=== PATIENT | female | born 1960 | race Caucasian/White ===

== ENCOUNTER 2024-08-04 11:32 | Outpatient (CLI) | payer BC, SELFPAY ==
[2024-08-04 19:18] LABS: Alanine Aminotransferase 29 U/L (6-35); Albumin Level 4.4 g/dL (3.5-5.1); Alkaline Phosphatase 66 U/L (38-126); Anion Gap 1 mmol/L (4-12); Aspartate Amino Transferase 48 U/L (14-36); Bilirubin,Total 0.6 mg/dL (0.2-1.3); Blood Urea Nitrogen 17 mg/dL (7-17); Calcium 9.4 mg/dL (8.4-10.2); Carbon Dioxide 34 mmol/L (22-30); Chloride 98 mmol/L (98-107); Cholesterol 193 mg/dL (0-200); Estimated Glomerular Filt Rate > 60; Glucose 106 mg/dL (65-110); HDL Direct 60 mg/dL; Potassium 4.3 mmol/L (3.4-5.0); Sodium 133 mmol/L (137-145); Triglycerides 110 mg/dL (<150)
[2024-08-04 19:29] LABS: LDL Cholesterol Direct 88 mg/dL
== END 2024-08-04 11:33 | disposition home or self-care (01) ==
LOC: ANHBWCLAB 11:34
PROVIDERS: PCP Nurse Practitioner Adult Health; Visit Provider Nurse Practitioner Adult Health
DX: E78.5 Hyperlipidemia, unspecified (principal)
CPT/HCPCS: 36415; 80053; 80061

== ENCOUNTER 2025-05-03 14:03 | Outpatient (CLI) | payer BC, SELFPAY ==
--- NOTE | ~2025-05-03 | XR_ITS ---
EXAM/ PROCEDURE: XR hand LT min 3V, XR hand RT min 3V - 05/03/2025 14:06 CDT HISTORY: 64 years old Female with M79.643 - Pain in unspecified hand COMPARISON: None available TECHNIQUE: Three view(s) each FINDINGS/ IMPRESSION: There are no fractures or dislocations.Joint space narrowing, subchondral sclerosis, subchondral cyst formation and osteophyte formation, compatible with mild multi joint osteoarthritis, greatest in the distal interphalangeal joints of both hands, left greater than right. Status post ORIF of the right distal radius. Intact hardware and no loosening Reviewed, dictated and finalized at location N.
--- OUTSIDE RECORDS SUMMARY | 2025-05-03 15:44 | XMS_ITS | Clinical Summary ---
Author Organization [facility] Address [address] [place] [address] Care Team Providers Care Hotel Operations Manager Name Role Phone Frank Golden MD Primary Care Provider [phone] [phone] Source Comments [facility],non-owned Affiliates and Associated Physician Practices is amultiple site organization consisting of ambulatory clinics and hospital sitesin [place], [place], [place] and [place]. This disclosure is being madepursuant to the Care Everywhere program and may not contain all information available regarding this patient. Last updated 18.[facility] Allergies No known active allergies Medications * Be aware that medications may not be up to date on this document. Alwaysverify current medications with the patient. atorvastatin (LIPITOR) 40 MG tablet Take 40 mg by mouth at bedtime Active lisinopril-hydr oCHLOROthiazide (PRINZIDE; ZESTORETIC) 10-12.5 MG tablet Take 1 tablet by mouth once daily Active budesonide-form oterol (SYMBICORT) 160-4.5 MCG/ACT inhaler Inhale 2 puffs by mouth 2 times daily Active albuterol HFA (PROVENTIL;VENT CHRISTOPHER;PROAIR) 108 (90 Base) MCG/ACT inhaler Inhale 2 puffs by mouth every 6 hours as needed Active methylPREDNISol one (MEDROL DOSEPAK) 4 MG tablet Take by mouth as directed 1 Each 04/15/2019 Active Social History Tobacco Use Types Packs/Day Years Used Date Smoking Tobacco: Never Assessed Comments Unknown Sex and Gender Information Value Date Recorded Sex Assigned at Not on file Legal Sex Female 7:52 AM CDT Gender Identity Not on file Sexual Orientation Not on file Last Filed Vital Signs Vital Sign Reading Time Taken Comments Blood Pressure 138/82 04/15/2019 3:23 PM CDT Pulse 84 04/15/2019 3:23 PM CDT Temperature 36.8 C (98.2 F) 04/15/2019 3:23 PM CDT Respiratory Rate 18 04/15/2019 3:23 PM CDT Oxygen Saturation 95% 04/15/2019 3:23 PM CDT Inhaled Oxygen Concentration - - Weight 124.7 kg (275 lb) 04/15/2019 3:23 PM CDT Height 170.2 cm (5' 7) 04/15/2019 3:23 PM CDT Body Mass Index 43.07 04/15/2019 3:23 PM CDT Plan of Treatment Health Maintenance Due Date Last Done Comments COLOGUARD (AGES 45-75) - COL ON CA SCREENING 1960 COLON MONITORING 1960 COLONOSCOPY - COLON CA SCREENING 1960 CT COLONOGRAPHY - COLON CA SCREENING 1960 Colorectal Cancer Screening 1960 FIT - COLON CA SCREENING 1960 FLEX SIG - COLON CA SCREENING 1960 MAMMOGRAM 1960 HIV SCREENING 11/09/1975 HEPATITIS C SCREENING 11/04/1978 DTAP/TDAP/TD VACCINES (1 - Tdap) 11/09/1979 PNEUMOCOCCAL VACCINE 50+ (1 of 1 - PCV) 2010 ZOSTER VACCINE (1 of 2) 2010 SCREENING FOR DIABETES 04/15/2019 DEPRESSION SCREENING 08/18/2024 COVID-19 VACCINE (1 - 2023-2 5 season) 2025 INFLUENZA VACCINE (#1) 2025 06/05/2018 Respiratory Syncytial Virus (RSV) Vaccine Pt: or over 60 yrs (1 - 1-dose 75+ series) 11/09/2035 HEPATITIS B VACCINE Aged Out No longe r eligible based on patient's age to complete this topic HIB VACCINE Aged Out No longer eligi ble based on patient's age to complete this topic HPV VACCINE Aged Out No longer eligi ble based on patient's age to complete this topic MENINGOCOCCAL (Group B) VACC INE SHARED DECISION-MAKING Aged Out No longer eligibl e based on patient's age to complete this topic MENINGOCOCCAL GROUPS A/C/Y/W VACCINE Aged Out No longer eligible b ased on patient's age to complete this topic Care Teams Hotel Operations Manager Relationship Specialty Start Date End Date Frank Golden MD [address] [place] [phone] PCP - General Internal Medicine 04/15/19
--- OUTSIDE RECORDS SUMMARY | 2025-05-03 15:45 | XMS_ITS | Clinical Summary ---
Author Organization [facility] Address [address] [place] [address] Care Team Providers Care Parts Data Writer Name Role Phone Unavailable Primary Care Provider Unavailabl e Social History Tobacco Use Types Packs/Day Years Used Date Smoking Tobacco: Never Assessed Comments Unknown Sex and Gender Information Value Date Recorded Sex Assigned at Not on file Legal Sex Female 8:30 PM CDT Gender Identity Not on file Sexual Orientation Not on file Plan of Treatment Health Maintenance Due Date Last Done Comments Cervical Cancer Screening Pa p Smear (Age 30 to 64) Every 3 Years 1960 Colorectal Cancer Screening Colonoscopy (10 Years) 1960 Annual Physical 11/09/1963 Hepatitis C 1978 DTaP, Tdap and Td Vaccines ( 1 - Tdap) 11/09/1979 Cervical Cancer Screening Pa p with HPV Testing (Age 30 to 64) Every 5 Years 1990 Cervical Cancer Screening with HPV 1990 Mammogram Screening 2000 Pneumococcal Vaccine: 50+ Ye ars (1 of 1 - PCV) 2010 Zoster Vaccines (1 of 2) 2010 COVID-19 Vaccine (2023-2 5 season) 2025 RSV Immunization or 60+ Years (1 - 1-dose 75+ series) 11/09/2035 Meningococcal B Vaccine Aged Out No l onger eligible based on patient's age to complete this topic Meningococcal Vaccine Aged Out No marty giuliana eligible based on patient's age to complete this topic RSV Immunizations Under 20 Months Aged Out No longer eligible based on patient's age to complete this topic
== END 2025-05-03 14:04 | disposition home or self-care (01) ==
LOC: ANHBWCIMG 14:05
PROVIDERS: PCP Nurse Practitioner Adult Health; Visit Provider Nurse Practitioner Adult Health
DX: M79.642 Pain in left hand (principal); M79.641 Pain in right hand
CPT/HCPCS: 73130

== ENCOUNTER 2025-05-09 07:09 | Outpatient (CLI) | payer BC, SELFPAY ==
[2025-05-09 19:06] LABS: Alanine Aminotransferase 25 U/L (6-35); Albumin Level 4.1 g/dL (3.5-5.1); Alkaline Phosphatase 83 U/L (38-126); Anion Gap 6 mmol/L (4-12); Aspartate Amino Transferase 59 U/L (14-36); Bilirubin,Total 0.2 mg/dL (0.2-1.3); Blood Urea Nitrogen 23 mg/dL (7-17); Calcium 8.8 mg/dL (8.4-10.2); Carbon Dioxide 30 mmol/L (22-30); Chloride 98 mmol/L (98-107); Cholesterol 206 mg/dL (0-200); Estimated Glomerular Filt Rate > 60; Glucose 104 mg/dL (65-110); Potassium 4.3 mmol/L (3.4-5.0); Sodium 134 mmol/L (137-145); Total Protein 7.3 g/dL (6.3-8.2); Triglycerides 103 mg/dL (<150)
[2025-05-09 19:26] LABS: Hemoglobin A1C 5.8 % (<5.7)
[2025-05-09 19:48] LABS: HDL Direct 68 mg/dL
== END 2025-05-09 07:10 | disposition home or self-care (01) ==
LOC: ANHBWCLAB 07:10
PROVIDERS: PCP Nurse Practitioner Adult Health; Visit Provider Nurse Practitioner Adult Health
DX: R73.03 Prediabetes (principal); E55.9 Vitamin D deficiency, unspecified; I10 Essential (primary) hypertension
CPT/HCPCS: 36415; 80053; 80061; 82306; 83036

== ENCOUNTER 2025-06-09 14:39 | Outpatient (CLI) | payer BC, SELFPAY ==
--- NOTE | ~2025-06-09 | DEXA_ITS ---
Bone Density Report Name: TALAT BRYAN Age: 64 Sex: Female Ethnicity: White Date of : 1960 Indication: postmenopausal; screening for osteoporosis; height loss; asthma or emphysema; Referring Provider: JAXSON OJEDA Study: Bone densitometry was performed. Exam Date: June 09, 2025 Accession number: [id number] Bone Density: Region BMD T-score Z-score Classification AP Spine(L1-L4) 0.728 -2.9 -1.2 Osteoporosis Femoral Neck (Left) 0.605 -2.2 -0.7 Osteopenia Total Hip (Left) 0.943 0.0 1.2 Normal Femoral Neck (Right) 0.671 -1.6 -0.1 Osteopenia Total Hip (Right) 0.913 -0.2 1.0 Normal Total Hip Mean 0.928 -0.1 1.1 Normal World Health Organization criteria for BMD impression classify patients as: Normal (T-score at or above -1.0), Osteopenia (T-score between -1.0 and -2.5), or Osteoporosis (T-score at or below -2.5). 10-year Fracture Risk: FRAX not reported because: Some T-score for Spine Total or Hip Total or Femoral Neck at or below -2.5 Clinical Information Provided by Patient: Has used the following medications: Vitamin D Has the following medical conditions: Asthma or Emphysema Patient maximum height was 67 Menopause Age: 50 No regular weight bearing exercise Drinks caffeinated beverages Onset of menses at age 13 Number of children 1 Impression: The patient has osteoporosis, based on the Total Spine T-score. Discussion: INCREASED RISK OF FRACTURE. BONE DENSITY IS UNDESIRABLY LOW AT ONE OR MORE SKELETAL SITES, CONSISTENT WITH POSTMENOPAUSAL OSTEOPOROSIS. This patient's lowest T-score meets the World Health Organization's (WHO) criteria for osteoporosis at one or more sites (T-score -2.5 or below). In untreated patients, the risk of osteoporotic fracture increases approximately two-fold for each 1.0 SD decrease in T-score. Low bone density is not the only risk factor for fracture; also consider factors such as patient's age, frailty or poor health, risk of falling, risk of injury, previous osteoporotic fracture, family history of osteoporosis, cigarette smoking, low body weight, etc. Not everyone with low bone mineral density has osteoporosis; osteomalacia and other metabolic bone disorders should also be considered. Patients who have osteoporosis should be evaluated for specific diseases and conditions (secondary causes) that may cause or contribute to bone loss. The [place] Association of Clinical Endocrinologists (AACE) and National Osteoporosis Foundation (NOF) recommend pharmacologic intervention for all postmenopausal women whose T-score is in this range. The patient should follow a healthful lifestyle (good nutrition with adequate calcium and vitamin D, and appropriate weight-bearing exercise). Follow-Up: Consider a repeat BMD and Vertebral Fracture Assessment (VFA) exam in 2 years or sooner if medically necessary, to reassess this patient's status. Reported by: JALEN on 06/09/2025 3:16:00 PM. Reviewed, dictated and finalized at location A.
== END 2025-06-09 14:40 | disposition home or self-care (01) ==
LOC: MICIMG 14:40
PROVIDERS: PCP Nurse Practitioner Adult Health; Visit Provider Nurse Practitioner Adult Health
DX: Z78.0 Asymptomatic menopausal state (principal); M81.0 Age-related osteoporosis without current pathological fracture; M85.852 Other specified disorders of bone density and structure, left thigh; M85.851 Other specified disorders of bone density and structure, right thigh
CPT/HCPCS: 77080

== ENCOUNTER 2025-06-29 08:46 | Outpatient (CLI) | payer BC, SELFPAY ==
--- OUTSIDE RECORDS SUMMARY | 2025-06-29 09:17 | XMS_ITS | Clinical Summary ---
Author Organization [facility] [address] Address [address] [place] [address] [address] [place] [address] Care Team Providers Care Front Desk Lead Name Role Phone Jenni Walter Primary Care Provider Unavaila ble Allergies No known active allergies Medications albuterol HFA (PROVENTIL HFA,VENTOLIN HFA,PROAIR HFA) 90 mcg/actuation inhaler Inhale 2 puffs every 6 (six) hours as needed Active budesonide-formo teroL (SYMBICORT) 160-4.5 mcg/actuation inhaler Inhale 2 puffs 2 (two) times a day Active lisinopriL (PRINIVIL,ZESTRI L) 20 mg tablet Take 1 tablet (20 mg total) by mouth daily 05/03/2025 Active rosuvastatin (CRESTOR) 5 mg tablet Take 1 tablet (5 mg total) by mouth daily 06/18/2024 Active hydroCHLOROthiaz елена 12.5 mg tablet Take 1 tablet/caps ule (12.5 mg total) by mouth daily 10/06/2014 Active Active Problems Problem Noted Date Diagnosed Date Severe obesity (BMI >= 40) 06/14/2024 Encounters Date Type Department Care Team Description 06/06/2025 2:10 PM CDT Office Visit [facility] [address] [place] [phone] Margaret Morales MD Encounter for gynecological examination without abnormal finding (Primary Dx); Encounter for screening mammogram for breast cancer 06/02/2025 Telephone [facility] [address] [place] [phone] Margaret oMrales MD Appointment Reminder Call from Last 3 Months Surgical History Surgery Date Site/Laterality Comments TONSILLECTOMY 08/18/1985 - 08/17/1986 ENDOMETRIAL ABLATION 08/18/2003 - 08/17/2004 WRIST SURGERY 08/18/2015 - 08/17/2016 Medical History Medical History Date Comments Hx Other Medical tobacco abuse Hx Other Medical nasal septum re paired Hx Other Medical ablation for en dometriosis Asthma Hypertension Family History Medical History Relation Name Comments Coronary artery disease Father Papo nary artery disease; Hyperlipidemia Father Hyperlipidemi a; Lung cancer Father Other Mother Alive and well; Rectal cancer Mother Breast cancer Other maternal great aunt Breast cancer Paternal Great-Grandmother Relation Name Status Comments Father Mother Other Paternal Great-Grandmother Social History Tobacco Use Types Packs/Day Years Used Date Smoking Tobacco: Former Cigarettes Q uit: 2011 Tobacco Cessation:Counseling Given: Not Answered Alcohol Use Standard Drinks/Week Comments Yes 0 (1 standard drink = 0.6 oz pur e alcohol) Comments No Sex and Gender Information Value Date Recorded Sex Assigned at Not on file Legal Sex 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 Gender Identity Not on file Sexual Orientation Not on file Occupation Industry Job Start Date Job End Date Not on file Not on file Not on file Not on file Obstetrics History Para Term AB IAB SAB Ectopic Multiple Livin g Live Births 2 1 1 1 1 1 Date Outcome GA Total Labor Labor/2nd/3rd Weight Sex Type Anes PTL Thais A1 A5 Name Clin AB 10/10 Term 3.062 kg (6 lb 12 oz) M Vaginal Living Complications:None Last Filed Vital Signs Vital Sign Reading Time Taken Comments Blood Pressure 142/70 06/06/2025 2:10 PM CDT Pulse - - Temperature - - Respiratory Rate - - Oxygen Saturation - - Inhaled Oxygen Concentration - - Weight 151.5 kg (334 lb) 06/06/2025 2:10 PM CDT Height 167.6 cm (5' 6) 06/06/2025 2:10 PM CDT Body Mass Index 53.91 06/06/2025 2:10 PM CDT Plan of Treatment Health Maintenance Due Date Last Done Comments Colon Cancer Screening-Colonoscopy 1960 Depression Screening 1960 Hepatitis C Screening 1960 Hepatitis B Screening 1978 Zoster Vaccine (1 of 2) 2010 Pneumococcal vaccine <65 (2 of 2 - PCV) 10/05/2015 0 10/05/2014 Influenza Vaccine (#1) 2025 06/05/2018 Breast Cancer Screening-Mammogram 06/02/2025 024 Cervical Cancer Screening 06/02/2025 06/02/2024, Regular Well Visit/Exam 18-64 06/06/2026 06/06/2025, 06/02/2024 DTaP/Tdap/Td Vaccine (2 - Td or Tdap) 07/22/202612/2015 Procedures Procedure Name Priority Date/Time Associated Diagnosis Comments HIGH RISK HPV DNA DETECTION WITH GENOTYPING Routine 06/02/2024 3:33 PM CDT Screening for malignant neoplasm of the cervix SCREENING MAMMOGRAM BILATERAL W OMER Schedule Routine, Read Routine (OP Routine) 06/02/2024 3:32 PM CDT Encounter for screening mammogram for breast cancer from Last 3 Months or Most Recently Relevant to Health Maintenance Results * High Risk HPV DNA Detection with Genotyping (Molecular component) (06/02/2024 3:33 PM CDT) HPV HR 16 Not Detected Not Detected [facility] Comment:Testing performed by : [facility], [address] [facility] [place]., [address] HPV HR 18 Not Detected Not Detected [facility] Comment:Testing performed by : [facility], [address] [place]., [address] HPV HR Non 16/18 Not Detected Not Detected [facility] Comment: Interpretive Data Nucleic acid amplification for detection of high-risk Human Papilloma virus (HPV) is performed by the [employer] 6800 HPV test. This assay specifically detects HPV-16 and HPV-18 genotypes. The following HPV genotypes are detected as high-risk HPV: HPV-31, 33, 35, ,39, 45, 51, 52, 56, 58, 59, 66, and 68. This assay has been approved by the [place] Food and Drug Administration for detection of HPV in cervical specimens collected by a physician using an endocervical brush/spatula or cervical broom and placed in the ThinPrep Pap Test PreservCyt collection containers. The performance characteristics of this test have been verified by the [facility] Infectious Disease laboratory. Correlate with separately reported cytology results, as applicable. Interpretive data last revised 23 Testing performed by: [facility], [address] [place]., [address] Endocervical 06/02/2024 3:33 PM CDT 06/03/2024 12:44 PM CDT Narrative [facility] - 06/03/2024 9:09 PM CDT Clinical history and diagnosis->DX Z12.4 Testing type->Screening Last menstrual period (date if known)->N/A Menstrual status->Postmenopausal Previous negative PAP?->Yes Margaret Morales MD LAB BODY FLUIDS AND S TOOLS ORDERABLES Final Result [facility] [address] Department [facility] Laboratories [place], [place] [id number] [facility] * Screening Mammogram Bilateral W Omer (06/02/2024 3:32 PM CDT) Anatomical Region Laterality Modality Breast Bilateral Mammography 06/10/2024 10:3 7 PM CDT Impressions 06/10/2024 10:37 PM CDT There is no mammographic evidence of malignancy. A 1 year screening mammogram is recommended. BI-RADS: 1 - Negative. The patient has been or will be contacted. The patient will be entered into a reminder system with a target due date of 1 year for her next mammogram. Electronically signed by: Su Wright M.D. Narrative 06/10/2024 10:37 PM CDT EXAMINATION: SCREENING MAMMOGRAM BILATERAL W OMER ORDERING HEALTHCARE PROVIDER: MARGARET MORALES HISTORY: Routine screening mammography. COMPARISON: None TECHNIQUE: CC and MLO views of the bilateral breasts were obtained with digital technique using breast tomosynthesis with C view. Computer aided detection was utilized. FINDINGS: DENSITY: The breasts are almost entirely fatty. BREASTS: There are no suspicious masses, suspicious calcifications, or other suspicious findings in either breast. Margaret Morales MD IMG MAMMO PROCEDURES Final Result from Last 3 Months or Most Recently Relevant to Health Maintenance Insurance [employer] O[employer] Care Teams Front Desk Lead Relationship Specialty Start Date End Date Jenni Walter PCP - General 03/11/07
--- OUTSIDE RECORDS SUMMARY | 2025-06-29 09:17 | XMS_ITS | Clinical Summary ---
Author Organization [facility] Address [address] [place] [address] Care Team Providers Care Motor Route Carrier Name Role Phone Frank Golden MD Primary Care Provider [phone] Source Comments [facility],non-owned Affiliates and Associated Physician Practices is amultiple site organization consisting of ambulatory clinics and hospital sitesin [place], [place], [place] and [place]. This disclosure is being madepursuant to the Care Everywhere program and may not contain all information available regarding this patient. Last updated 18.[facility] Allergies No known active allergies Medications * [...] age to complete this topic Care Teams Motor Route Carrier Relationship Specialty Start Date End Date Frank Gloden MD [address] [place] [phone] PCP - General Internal Medicine 04/15/19
--- OUTSIDE RECORDS SUMMARY | 2025-06-29 09:17 | XMS_ITS | Clinical Summary ---
Author Organization [facility] Address [address] [place] [id number] Care Team Providers Care Insole Tacker Name Role Phone Unavailable Primary Care Provider [...] Vaccines (1 of 2) 2010 COVID-19 Vaccine (2024-2 6 season) 2025 Influenza Adult (#1) 2025 RSV Immunization or 60+ Years (1 - 1-dose 75+ series) 11/09/2035 Hepatitis A Vaccines Aged Out No long er eligible based on patient's age to complete this topic Meningococcal B Vaccine Aged Out No l onger eligible based on patient's age to complete this topic Meningococcal Vaccine Aged Out No marty giuliana eligible based on patient's age to complete this topic RSV Immunizations Under 20 Months Aged Out No longer eligible based on patient's age to complete this topic
--- NOTE | 2025-06-29 09:20 | NEURO_ITS ---
Impression: # Complains of numbness of hands. ? # Left Ulnar Neuropathy across the elbow. ? # Mild evolving left Carpal Tunnel Syndrome. ? # Normal Needle/ EMG exam. ? Nerve Conduction Studies ?Stim Site NR Peak (ms) P-T Amp (?V) Site1 Site2 Delta-P (ms) Dist (cm) Livan (m/s) Left Median Anti Sensory (2-3nd Digit) Wrist ? 3.8 23.2 Wrist 2-3nd Digit 3.8 14.0 37 Wrist ? 3.8 26.1 Wrist 2-3nd Digit 3.8 14.0 37 Right Median Anti Sensory (2-3nd Digit) Wrist ? 3.6 26.7 Wrist 2-3nd Digit 3.6 14.0 39 Wrist ? 3.3 26.5 Wrist 2-3nd Digit 3.6 14.0 39 Left Radial Anti Sensory (Base 1st Digit) Wrist ? 2.2 9.4 Wrist Base 1st Digit 2.2 0.0 Right Radial Anti Sensory (Base 1st Digit) Wrist ? 2.0 22.0 Wrist Base 1st Digit 2.0 0.0 Left Ulnar Anti Sensory (5th Digit) Wrist ? 2.5 14.2 Wrist 5th Digit 2.5 14.0 56 Right Ulnar Anti Sensory (5th Digit) Wrist ? 2.7 25.9 Wrist 5th Digit 2.7 14.0 52 ?Stim Site NR Onset (ms) O-P Amp (mV) Site1 Site2 Delta-0 (ms) Dist (cm) Livan (m/s) Left Median Motor (Abd Poll Brev) Wrist ? 4.2 2.1 Elbow Wrist 4.2 26.0 62 Elbow ? 8.4 1.1 Right Median Motor (Abd Poll Brev) Wrist ? 3.4 2.1 Elbow Wrist 4.5 26.0 58 Elbow ? 7.9 3.0 Left Ulnar Motor (Abd Dig Minimi) Wrist ? 2.6 8.5 A Elbow Wrist 5.4 28.0 52 A Elbow ? 8.0 7.8 B Elbow Wrist 4.1 21.0 51 B Elbow ? 6.7 4.9 Right Ulnar Motor (Abd Dig Minimi) Wrist ? 3.4 5.5 A Elbow Wrist 4.7 30.0 64 A Elbow ? 8.1 2.9 B Elbow Wrist 3.3 21.0 64 B Elbow ? 6.7 1.8 F Wave Studies ?NR F-Lat (ms) L-R F-Lat (ms) Left Median (Mrkrs) (Abd Poll Brev) ? 28.73 0.24 Right Median (Mrkrs) (Abd Poll Brev) ? 28.97 0.24 Left Ulnar (Mrkrs) (Abd Dig Min) ? 29.38 0.56 Right Ulnar (Mrkrs) (Abd Dig Min) ? 28.81 0.56 Electromyography ?Side Muscle Nerve Root Ins Act Fibs Amp Dur Recrt Comment Right 1stDorInt Ulnar C8-T1 Nml Nml Nml Nml Nml Right Ext Indicis Radial (Post Int) C7-8 Nml Nml Nml Nml Nml Right Ext Digitorum Radial (Post Int) C7-8 Nml Nml Nml Nml Nml Right BrachioRad Radial C5-6 Nml Nml Nml Nml Nml Right PronatorTeres Median C6-7 Nml Nml Nml Nml Nml Right Abd Poll Brev Median C8-T1 Nml Nml Nml Nml Nml Right ABD Dig Min Ulnar C8-T1 Nml Nml Nml Nml Nml Right FlexPolLong Median (Ant Int) C7-8 Nml Nml Nml Nml Nml Right Abd Poll Long Radial (Post Int) C7-8 Nml Nml Nml Nml Nml Left 1stDorInt Ulnar C8-T1 Nml Nml Nml Nml Nml Left Ext Indicis Radial (Post Int) C7-8 Nml Nml Nml Nml Nml Left Ext Digitorum Radial (Post Int) C7-8 Nml Nml Nml Nml Nml Left BrachioRad Radial C5-6 Nml Nml Nml Nml Nml Left PronatorTeres Median C6-7 Nml Nml Nml Nml Nml Left Abd Poll Brev Median C8-T1 Nml Nml Nml Nml Nml Left ABD Dig Min Ulnar C8-T1 Nml Nml Nml Nml Nml Left FlexPolLong Median (Ant Int) C7-8 Nml Nml Nml Nml Nml Left Abd Poll Long Radial (Post Int) C7-8 Nml Nml Nml Nml Nml
== END 2025-06-29 08:47 | disposition home or self-care (01) ==
PROVIDERS: PCP Nurse Practitioner Adult Health; Visit Provider Nurse Practitioner Adult Health
DX: G56.02 Carpal tunnel syndrome, left upper limb (principal); G56.22 Lesion of ulnar nerve, left upper limb
CPT/HCPCS: 95886; 95911